=== PATIENT | female | born 1960 | race Caucasian/White ===

== ENCOUNTER 2024-02-04 10:27 | Emergency (ER) | payer OTHER, SELFPAY ==
[2024-02-04 10:34] VITALS: BP 122/69; PULSE 79; RESP 16; TEMP 37.2; O2SAT 97
--- NOTE | 2024-02-04 10:38 | ED.SKABFB ---
HPI - Skin/Abscess/Foreign Bdy General Chief complaint: Skin/Abscess/Foreign Body Stated complaint: bites on legs Time Seen by Provider: 02/04/24 10:38 Source: patient, RN notes reviewed and old records reviewed Mode of arrival: ambulatory Limitations: no limitations History of Present Illness HPI narrative: 63 year old female presents to [facility] care with complaints of having possible insect bites to left upper thigh groin area and to pubis area with surrounding redness and bruising for the past 3-4 days. Patient reports that areas are itchy and she has been scratching suspects bruising from her scratching. Patient is not on any blood thinners.Patient reports history of only one kidney with stage 3 kidney disease with last GFR 41.Patient reports that she has applied some antibiotic ointment to areas. MD complaint: rash and insect bite/sting Onset (ago): day(s) (3-4 days) Severity scale (1-10): 4 Quality: burning and other (soreness) Treatments prior to arrival: other (antibiotic ointment) Related Data Home Medications Medication Instructions Recorded Confirmed atorvastatin 40 mg tablet 40 mg PO DAILY 02/04/24 02/04/24 buspirone 5 mg tablet 5 mg PO BID 02/04/24 02/04/24 cariprazine 3 mg capsule (Vraylar) 3 mg PO DAILY 02/04/24 02/04/24 pramipexole 0.5 mg tablet 0.5 mg PO DAILY 02/04/24 02/04/24 ropinirole 0.5 mg tablet 0.5 mg PO DAILY 02/04/24 02/04/24 Allergies Allergy/AdvReac Type Severity Reaction Status Date / Time Penicillins AdvReac Other Verified 02/04/24 10:45 Review of Systems Review of Systems: CONSTITUTIONAL: Denies fever, chills, or sweats. CARDIOVASCULAR: Denies chest pain, palpitations, or edema. RESPIRATORY: Denies cough or dyspnea. SKIN: Reports left upper thigh/groin area possible insect bite with redness and bruising and also area to pubis with redness and bruising very itchy MUSCULOSKELETAL: Denies joint pain or myalgia. NEUROLOGIC: Denies headache, numbness, or weakness. All systems reviewed & are unremarkable except as noted in HPI and below PMFSH Past Medical History Medical History (Updated 06/26/24 @ 07:18 by Roxanne Venegas NP) Anxiety and depression Congenital absence of one kidney Elevated cholesterol Hx of migraines Kidney disease, chronic, stage III (moderate, EGFR 30-59 ml/min) Restless leg syndrome Surgical History Surgical History (Updated 02/05/24 @ 07:05 by Roxanne Venegas NP) H/O: hysterectomy History of cholecystectomy Social History Social History (Updated 02/05/24 @ 07:05 by Roxanne Venegas NP) Smoking status: Never smoker Alcohol intake: never Substance use: never Living arrangements: with family Gender identity (if verbalized by the patient): Female Comments At time of signature, agree with nursing past medical, surgical, social and family history. There is no relevant family history pertinent to the presenting complaint Exam Narrative: GENERAL: Well-appearing, well-nourished, and in no acute distress. HEAD: Normocephalic, atraumatic. EYES: PERRLA, conjunctivae clear, and EOMI. ENT: Mucous membranes moist. Oropharynx without edema, erythema or lesions. NECK: Supple. No lymphadenopathy CHEST: Clear to auscultation. No respiratory distress.SAO2 97% on room air HEART: Regular rate and rhythm. SKIN: Warm, dry.? possible insect bites x2, one to left upper thigh/groin with inner lesion 1cm X 2cm with 4cm X 6cm surrounding redness and bruising, one to pubis area with center [id number] inner scabbed area with 4cm X 6cm redness and bruising. no drainage or any vesicles noted.itchy NEURO:? Alert and oriented x3. PSYCH: Normal mood and affect Course Course Emergency Course: Patient is aware of diagnosis, understands and agrees to treatment plan.? Anticipatory guidance given.? Patient agrees to follow-up as directed and is aware of reasons to seek care at the emergency department. Portions of this record may have been
[2024-02-04 10:46] VITALS: BP 122/69; PULSE 79; RESP 16; TEMP 37.2; O2SAT 97
== END 2024-02-04 11:05 | disposition home or self-care (01) ==
PROVIDERS: Emergency Provider Registered Nurse
DX: S70.362A Insect bite (nonvenomous), left thigh, initial encounter (principal); S30.861A Insect bite (nonvenomous) of abdominal wall, initial encounter; L03.116 Cellulitis of left lower limb; L03.314 Cellulitis of groin; W57.XXXA Bitten or stung by nonvenomous insect and other nonvenomous arthropods, initial encounter; E78.00 Pure hypercholesterolemia, unspecified; N18.30 Chronic kidney disease, stage 3 unspecified; G25.81 Restless legs syndrome; Q60.0 Renal agenesis, unilateral
CPT/HCPCS: 99213; G0463